=== PATIENT | male | born 1980 | race Caucasian/White ===

== ENCOUNTER 2021-08-02 07:39 | Emergency (ER) | payer BC, OTHER ==
[2021-08-02 07:43] VITALS: RESP 18
[2021-08-02] MEDS ORDERED: NITROGLYCERIN SL TABS 0.4 MG TAB SUBLINGUAL STA (08:03)
[2021-08-02] MEDS ORDERED: ASPIRIN 81 MG PO STA (08:03)
[2021-08-02 08:18] LABS: Basophils # (A) 0.1 k/uL (0-0.2); Basophils % (A) 1 %; Eosinophils # (A) 0.2 k/uL (0-0.7); Eosinophils % (A) 2 %; HCT 47.1 % (39.0-53.0); HGB 16.1 gm/dL (13.0-17.5); Lymphocytes # (A) 2.1 k/uL (1.0-4.8); Lymphocytes % (A) 22 %; MCH 30.8 pg (25.0-35.0); MCHC 34.2 g/dL (31.0-37.0); MCV 90.1 fL (80.0-100.0); Mean Platelet Volume 6.9; Monocytes # (A) 0.8 k/uL (0-1.0); Monocytes % (A) 8 %; Neutrophils # (A) 6.2 k/uL (1.3-7.7); Neutrophils % (A) 65 %; Platelet Count 349 k/uL (150-450); RBC 5.23 m/uL (4.30-5.90); RDW 12.2 % (11.5-15.5); WBC 9.6 k/uL (3.8-10.6)
--- NOTE | 2021-08-02 08:27 | ED ---
Chest Pain HPI - General Chief Complaint: Chest Pain Stated Complaint: chest pain Time Seen by Provider: 08/02/21 07:54 Source: patient Mode of arrival: wheelchair Limitations: no limitations - History of Present Illness Initial Comments: 41-year-old male with no personal history of heart disease but a family history of heart disease who states that he started Developing midsternal chest discomfort tightness 3/10 severity he has some difficulty breathing along with it also some lightheadedness. No nausea no vomiting. He later stated this seemed to occur about an hour after taking a new prescription no other current complaints or modifying factors he is a nonsmoker. He does state his grandfather had heart disease at about his age father had heart disease at a later age. MD Complaint: chest pain - Related Data Home Medications Medication Instructions Recorded Confirmed FLUoxetine HCL [PROzac] 20 mg PO DAILY 08/02/21 08/02/21 busPIRone HCl [Buspar] 10 mg PO BID 08/02/21 08/02/21 Allergies Allergy/AdvReac Type Severity Reaction Status Date / Time No Known Allergies Allergy Verified 08/02/21 08:35 Review of Systems ROS Statement: Those systems with pertinent positive or pertinent negative responses have been documented in the HPI. ROS Other: All systems not noted in ROS Statement are negative. EKG Findings - EKG Results: EKG: interpreted by [facility] (Sinus rhythm though the reading the computer as atrial fibrillation rate was 84 QRS 90 QT since QTC 3:30/379 st-t wave changes) Past Medical History Past Medical History: No Reported History History of Any Multi-Drug Resistant Organisms: None Reported Past Surgical History: No Surgical Hx Reported Past Psychological History: No Psychological Hx Reported Smoking Status: Never smoker Past Alcohol Use History: None Reported Past Drug Use History: None Reported General Exam - General Exam Comments Initial Comments: This is a well-developed well-nourished awake alert oriented x3 male Limitations: no limitations General appearance: alert, anxious Head exam: Present: atraumatic, normocephalic, normal inspection Eye exam: Present: normal appearance, PERRL, EOMI. Absent: scleral icterus, con junctival injection, periorbital swelling ENT exam: Present: normal exam, mucous membranes moist Neck exam: Present: normal inspection, full ROM, other (No stridor JVD or bruits). Absent: tenderness, meningismus, lymphadenopathy Respiratory exam: Present: normal lung sounds bilaterally, chest wall tenderness (Mild tenderness palpation of the midsternal area no step-off or crepitation). Absent: respiratory distress, wheezes, rales, rhonchi, stridor Cardiovascular Exam: Present: regular rate, normal rhythm, normal heart sounds. Absent: systolic murmur, diastolic murmur, rubs, gallop, clicks GI/Abdominal exam: Present: soft, normal bowel sounds. Absent: distended, t enderness, guarding, rebound, rigid Extremities exam: Present: normal inspection, full ROM, normal capillary refill. Absent: tenderness, pedal edema, joint swelling, calf tenderness Back exam: Present: normal inspection Neurological exam: Present: alert, oriented X3, CN II-XII intact Psychiatric exam: Present: normal affect, normal mood Skin exam: Present: warm, dry, intact, normal color. Absent: rash Course Vital Signs 08/02/21 08/02/21 07:41 09:29 Temperature 98.4 F 98.5 F Pulse Rate 84 76 Respiratory 18 18 Rate Blood Pressure 157/80 128/89 O2 Sat by Pulse 97 97 Oximetry Chest Pain MDM - MDM I did review the imaging and report no evidence of acute findings I did discuss the findings the patient's symptoms have resolved he still has reproducible chest pain he will be discharged I did recommend a baby aspirin daily and follow-up with his doctor and he recommended outpatient cardiac stress test. Disposition Clinical Impression: Chest wall syndrome, Costochondritis Disposition: HOME SELF-CARE Instructions (If sedation given, give patient instructions): Costochondritis (ED) Additional Instructions: Daily baby aspirin Is patient prescribed a controlled substance at d/c from ED?: No Referrals: Radha Meyer III, MD [Primary Care Provider] - 1-2 days
[2021-08-02 08:29] LABS: ALT 20 U/L (4-49); AST 22 U/L (17-59); African American GFR (CKD) >90 (>60 ml/min/1.73 sqM); Albumin 4.3 g/dL (3.5-5.0); Alkaline Phosphatase 93 U/L (38-126); Anion Gap 9 mmol/L; Blood Urea Nitrogen 11 mg/dL (9-20); Calcium 8.8 mg/dL (8.4-10.2); Carbon Dioxide 19 mmol/L (22-30); Chloride 109 mmol/L (98-107); Glucose 120 mg/dL (74-99); Magnesium 2.1 mg/dL (1.6-2.3); Non-African American GFR(CKD) >90 (>60 ml/min/1.73 sqM); Potassium 4.1 mmol/L (3.5-5.1); Sodium 137 mmol/L (137-145); Total Bilirubin 0.6 mg/dL (0.2-1.3); Total Protein 6.9 g/dL (6.3-8.2)
--- NOTE | 2021-08-02 08:29 | XR ---
EXAMINATION TYPE: XR chest 2V DATE OF EXAM: 08/02/2021 COMPARISON: NONE HISTORY: Chest pain. TECHNIQUE: Frontal and lateral views of the chest are obtained. FINDINGS: Overlying EKG leads are now present. There is no focal air space opacity, pleural effusion , or pneumothorax seen. The cardiac silhouette size is upper limits of normal. The osseous structu res are intact. IMPRESSION: No acute process.
[2021-08-02 08:46] LABS: Partial Thromboplastin Time 26.3 sec (22.0-30.0); Prothrombin Time 10.6 sec (9.0-12.0)
[2021-08-02 09:30] VITALS: BP 128/89; PULSE 76; TEMP 98.5
== END 2021-08-02 11:24 | disposition home or self-care (01) ==
LOC: EC 07:39
DX: R07.1 Chest pain on breathing (principal); M94.0 Chondrocostal junction syndrome [Tietze]
CPT/HCPCS: 36415; 71046; 80053; 83735; 83880; 84484; 85025; 85379; 85610; 85730; 93005; 99285

== ENCOUNTER → 2022-06-21 | Outpatient (CLI) | payer OTHER ==
--- NOTE | 2022-06-21 14:28 | US ---
EXAMINATION TYPE: US scrotum with doppler. Grayscale and color Doppler Duplex imaging performed of lidya vasquez scrotum. DATE OF EXAM: 06/21/2022 COMPARISON: NONE CLINICAL HISTORY: N50.82 SCROTAL PAIN. Right sided testicular pain, patient also feels mass on the ri ght x 2 weeks. Hx of vasectomy and vasectomy reversal. EXAM MEASUREMENTS: TESTICLES: Right Testicle: 4.6 x 2.9 x 2.4 cm intratesticular vessel noted with internal color Doppler flow. Left Testicle: 4.8 x 2.9 x 2.5 cm EPIDIDYMIS HEAD: Right Epididymis: 1.0 x 0.7 x 1.4 cm. Anechoic area seen within: 0.3 x 0.2 x 0.4 cm. Left Epididymis: 0.7 x 1.4 x 1.2 cm Doppler performed to assess for testicular vascularity; bilateral color flow and waveforms are seen. Presence of hydroceles: Yes, Right: 3.2 x 2.7 x 1.1 cm. Left: 4.6 x 1.7 x 1.4 cm. Presence of varicoceles: Vessels do appear prominent bilaterally measuring 0.4 cm on the right and 0 .4 cm on the left. IMPRESSION: 1. Bilateral varicocele with suspected intra testicular varicocele on the right. 2. Bilateral small hydrocele
== END | disposition home or self-care (01) ==
LOC: RADUSWWP 12:44
PROVIDERS: ATTEND Family Medicine
DX: N43.3 Hydrocele, unspecified (principal); I86.1 Scrotal varices; K40.20 Bilateral inguinal hernia, without obstruction or gangrene, not specified as recurrent
CPT/HCPCS: 76870; 93975

== ENCOUNTER → 2022-06-26 | Outpatient (CLI) | payer OTHER ==
--- NOTE | 2022-06-26 08:53 | CT ---
EXAMINATION TYPE: CT pelvis w con DATE OF EXAM: 06/26/2022 COMPARISON: Scrotal ultrasound June 21, 2022. HISTORY: Inguinal hernia CT DLP: 908 mGycm Automated exposure control for dose reduction was used. CONTRAST: Performed with oral and with IV Contrast, patient injected with 70 ml mL of Isovue 300. FINDINGS: Oral contrast reaches level of mid transverse colon. No suspicious small or large bowel dilatation. N ormal-appearing appendix ascending from the cecum. Prostate gland appears within normal limits. Mild distention of bladder without intraluminal mass or calculus. No significant inguinal or ventral wall hernia. No concerning pelvic fluid collection or adenopathy. Osseous structures are intact. IMPRESSION: No significant abnormality is seen.
== END | disposition home or self-care (01) ==
LOC: RADCTMAIN 06:53
PROVIDERS: ATTEND Family Medicine
DX: K40.20 Bilateral inguinal hernia, without obstruction or gangrene, not specified as recurrent (principal)
CPT/HCPCS: 72193; Q9967